=== PATIENT | male | born 1955 | race Caucasian/White ===

== ENCOUNTER → 2017-11-23 15:39 | Outpatient (CLI) | payer BC, SELFPAY ==
[2017-11-23 16:18] LABS: Add Manual Diff / Slide Review NO; Basophils Percent Auto 0.7 % (0-2); Hematocrit 42.1 % (41-53); Hemoglobin 14.7 g/dL (13.5-17.5); Lymphocytes Percent Auto 24.9 % (25-40); Mean Corpuscular Hemoglobin 31.7 PG (26-34); Mean Corpuscular Volume 90.5 fL (80-100); Monocytes Percent Auto 8.6 % (3-14); Neutrophils Absolute Auto 4700 /uL (3000-5900); Neutrophils Percent Auto 64.8 % (50-75); Platelet Count 173 X10^3/uL (150-400); Red Blood Cell Count 4.65 X10^6/uL (4.5-5.9); Red Cell Distribution Width 13.3 % (11.6-14.8); White Blood Cell Count 7.3 X10^3/uL (4.5-11.0)
[2017-11-23 16:24] LABS: Hemoglobin A1C% w Est Avg Glu 5.1 % (4.0-6.0)
[2017-11-23 16:45] LABS: Cholesterol 228 mg/dL (140-199); HDL Cholesterol 87 mg/dL (40-60); LDL Cholesterol Calculated 128 mg/dL (<100); Triglycerides 64 mg/dL (35-150)
[2017-11-23 17:14] LABS: Thyroid Stimulating Hormone 3.38 uIU/mL (0.47-4.68)
[2017-11-23 18:19] LABS: Alanine Aminotransferase 33 IU/L (21-72); Albumin 4.8 g/dL (3.5-5.0); Albumin Globulin Ratio 1.5 (1.0-2.8); Alkaline Phosphatase 43 U/L (38-126); Aspartate Aminotransferase 44 IU/L (17-59); BUN Creatinine Ratio 18.8 (6-22); Bilirubin Total 1.3 mg/dL (0.2-1.3); Blood Urea Nitrogen 15 mg/dL (9-20); Calcium 9.5 mg/dL (8.4-10.2); Carbon Dioxide 26 mmol/L (22-32); Chloride 100 mmol/L (98-107); Estimated Glomerular Filt Rate > 60.0 mL/min (>60); Globulin 3.1 g/dL (1.7-4.1); Glucose 89 mg/dL (80-110); HEMOLYSIS < 15 (0-50); Potassium 4.2 mmol/L (3.4-5.1); Sodium 139 mmol/L (137-145); Total Protein 7.9 g/dL (6.3-8.2)
== END ==
PROVIDERS: Family Provider Family Medicine; PCP Family Medicine; Visit Provider Family Medicine
DX: I10 Essential (primary) hypertension (principal); Z13.0 Encounter for screening for diseases of the blood and blood-forming organs and certain disorders involving the immune mechanism; R73.9 Hyperglycemia, unspecified; R78.5 Finding of other psychotropic drug in blood; Z13.29 Encounter for screening for other suspected endocrine disorder; Z12.5 Encounter for screening for malignant neoplasm of prostate
CPT/HCPCS: 36415; 80053; 80061; 83036; 84153; 84443; 85025

== ENCOUNTER → 2019-12-14 11:24 | Outpatient (CLI) | payer BC, MEDICARE, SELFPAY ==
[2019-12-14 12:15] LABS: Add Manual Diff / Slide Review NO; Basophils Absolute Auto 100 /uL (0-100); Basophils Percent Auto 0.9 % (0-2); Eosinophils Absolute Auto 100 /uL (0-450); Eosinophils Percent Auto 1.5 % (2-4); Hematocrit 41.7 % (41-53); Hemoglobin 14.2 g/dL (13.5-17.5); Lymphocytes Absolute Auto 1500 /uL (1100-4500); Lymphocytes Percent Auto 23.5 % (25-40); Mean Corpuscular HGB Conc 34.1 % (30-36); Mean Corpuscular Hemoglobin 30.7 PG (26-34); Mean Corpuscular Volume 89.9 fL (80-100); Monocytes Absolute Auto 600 /uL (0-900); Monocytes Percent Auto 9.5 % (3-14); Neutrophils Absolute Auto 4000 /uL (1500-7000); Neutrophils Percent Auto 64.6 % (50-75); Platelet Count 162 X10^3/uL (150-400); Red Blood Cell Count 4.64 X10^6/uL (4.5-5.9); Red Cell Distribution Width 13.1 % (11.6-14.8); White Blood Cell Count 6.3 X10^3/uL (4.5-11.0)
[2019-12-14 13:03] LABS: Alanine Aminotransferase 25 IU/L (<50); Albumin 4.4 g/dL (3.5-5.0); Albumin Globulin Ratio 1.7 (1.0-2.8); Alkaline Phosphatase 46 U/L (38-126); Aspartate Aminotransferase 27 IU/L (17-59); BUN Creatinine Ratio 14.5 (6-22); Bilirubin Total 0.8 mg/dL (0.2-1.3); Blood Urea Nitrogen 11 mg/dL (9-20); Calcium 9.6 mg/dL (8.4-10.2); Carbon Dioxide 26 mmol/L (22-32); Chloride 101 mmol/L (98-107); Cholesterol 170 mg/dL (140-199); Estimated Glomerular Filt Rate > 60.0 mL/min (>60); Globulin 2.6 g/dL (1.7-4.1); Glucose 102 mg/dL (80-110); HDL Cholesterol 45 mg/dL (40-60); HEMOLYSIS < 15 (0-50); LDL Cholesterol Calculated 104 mg/dL (<100); Potassium 4.6 mmol/L (3.4-5.1); Sodium 135 mmol/L (137-145); Triglycerides 107 mg/dL (35-150)
[2019-12-14 13:31] LABS: Prostate Specific Antigen Scrn 2.05 ng/mL (0.1-4.0); Thyroid Stimulating Hormone 3.97 uIU/mL (0.47-4.68)
== END ==
PROVIDERS: Family Provider Family Medicine; PCP Family Medicine; Referring Provider Family Medicine; Visit Provider Family Medicine
DX: E78.2 Mixed hyperlipidemia (principal); E03.9 Hypothyroidism, unspecified; Z12.5 Encounter for screening for malignant neoplasm of prostate
CPT/HCPCS: 36415; 80053; 80061; 84443; 85025; G0103

== ENCOUNTER → 2021-10-30 13:24 | Outpatient (CLI) | payer BC, SELFPAY ==
[2021-10-30 13:54] LABS: Alanine Aminotransferase 39 IU/L (<50); Albumin 4.6 g/dL (3.5-5.0); Albumin Globulin Ratio 1.6 (1.0-2.8); Alkaline Phosphatase 43 U/L (38-126); Aspartate Aminotransferase 32 IU/L (17-59); BUN Creatinine Ratio 14.3 (6-22); Bilirubin Total 0.8 mg/dL (0.2-1.3); Blood Urea Nitrogen 11 mg/dL (9-20); Carbon Dioxide 29 mmol/L (22-32); Chloride 100 mmol/L (98-107); Cholesterol 212 mg/dL (140-199); Estimated Glomerular Filt Rate > 60 mL/min (>60); Globulin 2.9 g/dL (1.7-4.1); Glucose 92 mg/dL (80-110); HDL Cholesterol 56 mg/dL (40-60); HEMOLYSIS < 15 (0-50); LDL Cholesterol Calculated 138 mg/dL (<100); Potassium 4.3 mmol/L (3.4-5.1); Sodium 139 mmol/L (137-145); Total Protein 7.5 g/dL (6.3-8.2); Triglycerides 90 mg/dL (35-150)
[2021-10-30 14:24] LABS: Prostate Specific Antigen Scrn 2.81 ng/mL (0.1-4.0)
[2021-10-30 16:19] LABS: TSH w/ Reflex to FT4 2.83 uIU/mL (0.47-4.68)
== END ==
PROVIDERS: Family Provider Family Medicine; PCP Internal Medicine; Referring Provider Internal Medicine; Visit Provider Internal Medicine
DX: E03.9 Hypothyroidism, unspecified (principal); E78.2 Mixed hyperlipidemia; Z12.5 Encounter for screening for malignant neoplasm of prostate
CPT/HCPCS: 36415; 80053; 80061; 84443; G0103

== ENCOUNTER → 2022-09-27 07:00 | Outpatient (CLI) | payer BC, SELFPAY ==
[2022-09-27 08:33] LABS: Alanine Aminotransferase 60 IU/L (<50); Albumin 4.4 g/dL (3.5-5.0); Albumin Globulin Ratio 1.3 (1.0-2.8); Alkaline Phosphatase 42 U/L (38-126); Aspartate Aminotransferase 62 IU/L (17-59); BUN Creatinine Ratio 12.7 (6-22); Bilirubin Total 0.8 mg/dL (0.2-1.3); Blood Urea Nitrogen 9 mg/dL (9-20); Calcium 9.4 mg/dL (8.4-10.2); Carbon Dioxide 31 mmol/L (22-32); Chloride 100 mmol/L (98-107); Cholesterol 227 mg/dL (140-199); Estimated Glomerular Filt Rate > 60 mL/min (>60); Globulin 3.3 g/dL (1.7-4.1); Glucose 104 mg/dL (80-110); HDL Cholesterol 77 mg/dL (40-60); HEMOLYSIS 32 (0-50); LDL Cholesterol Calculated 134 mg/dL (<100); Potassium 4.6 mmol/L (3.4-5.1); Sodium 136 mmol/L (137-145); Total Protein 7.7 g/dL (6.3-8.2); Triglycerides 81 mg/dL (35-150)
[2022-09-27 08:50] LABS: Free T4, Direct Thyroxine 0.96 ng/dL (0.78-2.19)
[2022-09-27 09:04] LABS: Prostate Specific Antigen Scrn 2.89 ng/mL (0.1-4.0); Thyroid Stimulating Hormone 5.37 uIU/mL (0.47-4.68)
== END ==
PROVIDERS: Family Provider Family Medicine; PCP Internal Medicine; Referring Provider Internal Medicine; Visit Provider Internal Medicine
DX: E03.9 Hypothyroidism, unspecified (principal); Z13.1 Encounter for screening for diabetes mellitus; Z13.220 Encounter for screening for lipoid disorders; Z12.5 Encounter for screening for malignant neoplasm of prostate; Z13.6 Encounter for screening for cardiovascular disorders
CPT/HCPCS: 36415; 80053; 80061; 84439; 84443; G0103

== ENCOUNTER → 2022-09-28 14:36 | Outpatient (CLI) | payer BC, SELFPAY ==
[2022-09-28 16:19] LABS: Creatine Kinase 51 U/L (55-170); HEMOLYSIS < 15 (0-50); Iron 154 ug/dL (49-181)
[2022-09-28 16:29] LABS: Percent Iron Saturation 54 % (20-50); Total Iron Binding Capacity 286 ug/dL (261-462); Transferrin 242 mg/dL (206-381)
[2022-09-29 03:51] LABS: Ceruloplasmin 21.7 mg/dL (16.0-31.0)
[2022-09-29 17:54] LABS: Hep C Virus Ab w/Reflex Quant NEGATIVE s/c (NEGATIVE); Hepatitis B Surface Antigen NEGATIVE s/c (NEGATIVE)
[2022-09-30 04:09] LABS: Hepatitis B Surf Ab Qualitativ Non Reactive (.)
[2022-09-30 12:42] LABS: Smooth Muscle Antibody 5 Units (0-19)
[2022-10-01 19:34] LABS: ANA Screen, IFA Negative (.)
[2022-10-05 23:24] LABS: Deamidated Gliadin IgA 4 units (0-19); Deamidated Gliadin IgG 2 units (0-19); IGA 282 mg/dL (61-437); t-Transglutaminase IgA <2 U/mL (0-3)
== END ==
PROVIDERS: Family Provider Family Medicine; PCP Internal Medicine; Referring Provider Internal Medicine; Visit Provider Internal Medicine
DX: R74.01 Elevation of levels of liver transaminase levels (principal)
CPT/HCPCS: 36415; 82390; 82550; 82784; 83516; 83540; 83550; 86038; 86255; 86706; 86803; 87340

== ENCOUNTER 2022-12-24 08:42 | Day surgery (SDC) | payer BC, SELFPAY ==
--- NOTE | 2022-12-24 | PATH_ITS ---
[facility] Accession Number: [id number] . 01 Material submitted: . rectum - RECTAL POLYP . 01 Diagnosis: COLON, RECTUM, POLYP BIOPSY: - HYPERPLASTIC POLYP WITH FOCAL EROSION. - NEGATIVE FOR DYSPLASIA OR MALIGNANCY. TXN 12/30/2022 1106 Local . 01 Electronically signed: . Alondra Ruvalcaba MD, Pathologist NPI- [id number] . 01 Gross description: . RECTAL POLYP: Received in formalin are 4 fragment(s) of [place], soft tissue measuring 0.2 x 0.2 x 0.2 cm to 0.9 x 0.8 x 0.7 cm submitted entirely in 1 cassette(s) /MARCELLUS 12/28/2022 1944 Local . 01 Pathologist provided ICD-10: Z12.11 . 01 CPT . 147072 Performed at: 01 [facility] [address] [place] [address] [id number] MD Elliott Rizzo MD Phone: [phone]
[2022-12-24 08:58] VITALS: BP 139/72; PULSE 58; RESP 16; TEMP 36.3; O2SAT 98; BMI 23.6
[2022-12-24] MEDS: LACTATED RINGERS 1,000 ML 42 ML IV (09:12)
--- NOTE | 2022-12-24 10:20 | PM.HP.1 ---
History of Present Illness History of Present Illness Date Patient Seen: 12/24/22 Time Patient Seen: 10:20 Chief complaint: Colonoscopy Narrative: 67-year-old male presents today for a screening colonoscopy. His last colonoscopy was in 2008 at [facility] he had no polyps or other issues as far as he knows. No family history of colon cancer and no symptoms that are concerning to him. He otherwise has no questions or concerns and wishes to proceed [facility] Medical History (Updated 12/24/22 @ 10:21 by Gaby Bradley MD) Chickenpox (~1958) Hypothyroidism Mixed hyperlipidemia Sleep apnea, unspecified (01/05/12) Subarachnoid hemorrhage (07/17/14) Family History (Updated 02/26/14 @ 00:00 by Conversion Provider) Sister Age: 70 Lupus Social History (Updated 07/29/17 @ 18:57 by Elena Baker) household members: spouse pets and animals: Yes education level: high school leisure activities: music seatbelt use: always water heater temp set < 120 deg: Yes working smoke detector in home: Yes fire extinguisher in home: Yes carbon monox detector in home: Yes firearms in home: No Smoking Status: Never smoker alcohol intake: current substance use type: does not use during the past year weight has: remained stable well-balanced diet: daily or most days daily servings fruits/ve-4 caffeine: Yes eating out: 1-3 times/week Type(s) of exercise: other Meds Home Medications and Allergies Home Medications Medication Instructions Recorded Confirmed Type sodium,potassium,mag sulfates 17.5 See Rx Instructions PO .COMPLEX 11/04/22 Rx gram-3.13 gram-1.6 gram oral soln #354 mL (Suprep Bowel Prep Kit) Allergies Allergy/AdvReac Type Severity Reaction Status Date / Time No Known Drug Allergies Allergy Verified 12/24/22 08:53 Exam Vital Signs (past 8 hours): - 12/24/22 08:58 Temperature 97.3 F L Pulse Rate 58 L Respiratory Rate 16 Blood Pressure 139/72 Pulse Oximetry 98 Oxygen Delivery Method Room Air Oxygen Delivery Method Room Air Const General: cooperative, healthy appearing and comfortable Nutritional Appearance: average body habitus and well nourished HENMT Head: normal to inspection Eyes General: appearance normal, both eyes and all related structures Resp Effort & Inspection: normal respiratory effort and able to speak in complete sentences GI Palpation: soft and No tender Assessment & Plan Assessment and plan (1) Screening for colon cancer: Status: Acute Plan Presents today for screening colonoscopy I discussed the risks benefits and alternatives including but not limited to perforation of the colon and an incomplete exam he fully understands these risks and would like to proceed.
[2022-12-24 11:09] VITALS: BP 105/58; PULSE 59; RESP 14; TEMP 36.2; O2SAT 98
--- NOTE | 2022-12-24 11:12 | PM.OP.COLON ---
Operative Date/Time/Diagnoses Date of procedure: 12/24/22 Time of procedure: 11:12 Pre-op diagnosis: Screening for colon cancer. no family history Post-op diagnosis: same Procedure & Clinicians Study performed: Colonoscopy and biopsy Same procedure as scheduled: Yes Indications: Screening for colon cancer. Surgeon: Gaby Bradley Procedure Notes Procedure in detail: Patient was taken to the endoscopy suite and placed in a left lateral decubitus position. A time-out was performed. With the help of anesthesiologist conscious sedation was induced and monitored throughout the case. A digital rectal exam was performed and there were no masses or strictures. The colonoscope was introduced into the anal canal and advanced through to the cecum. A pedunculated red colored polyp was seen in the rectum on the way in, the scope was advanced with some abdominal pressure to the cecum. A photograph of the appendiceal orifice was obtained. The bowel prep was good [place] bowel prep score of 2. The scope was then withdrawn for a total of 15 minutes including biopsy. There were scattered diverticula throughout the sigmoid colon. There were no other polyps identified or seen and the pedunculated 9 mm approximately reddish colored polyp was removed with a snare and further pieces of the stalk were taken with the biopsy forceps and the entire polyp was sent in 1 specimen jar for pathology. The scope was then retroflexed and a photograph of the internal hemorrhoidal piles was obtained. Findings: diverticulitis and polyp(s) Specimen(s): other (Rectal polyp, pedunculated, approximately 9 mm size) Complications: none Post-procedure Plan for aftercare: Depending on the pathology of the polyp your follow-up recommendation will be between 5-10 years. I do recommend a fiber supplementation both because of diverticula and polyps.
[2022-12-24 11:13] VITALS: BP 112/60; PULSE 59; RESP 15; O2SAT 98
[2022-12-24 11:18] VITALS: BP 108/51; PULSE 65; RESP 18; TEMP 35.9; O2SAT 98
[2022-12-24 11:20] VITALS: BP 118/64; PULSE 56; RESP 19; O2SAT 99
== END 2022-12-24 11:33 | disposition home or self-care (01) ==
PROVIDERS: Family Provider Family Medicine; PCP Internal Medicine; Referring Provider Surgery; Visit Provider Surgery
PROC: 0DJD8ZZ Inspection of Lower Intestinal Tract, Via Natural or Artificial Opening Endoscopic (ICD-10-PCS; CPT 45378; principal; 2022-12-24 09:30)
DX: Z12.11 Encounter for screening for malignant neoplasm of colon (principal); K57.30 Diverticulosis of large intestine without perforation or abscess without bleeding; K62.1 Rectal polyp
CPT/HCPCS: 45385; 45380; J2704

== ENCOUNTER → 2023-05-12 10:25 | Outpatient (CLI) | payer BC, SELFPAY ==
--- NOTE | 2023-05-12 10:26 | DI.RAD.S_ITS ---
PROCEDURE: XR HIP W PEL IF DONE LT 2V INDICATIONS: pain x 4 weeks TECHNIQUE: AP pelvis with lateral view(s) of the left hip(s). COMPARISON: None. FINDINGS: Bones: No fractures or dislocations. Pelvic ring appears intact. No suspicious bony lesions. Moderate symmetric hip and sacroiliac joint joint degeneration. Soft tissues: The visualized bowel gas pattern is normal. No suspicious soft tissue calcifications. IMPRESSION: Moderate degenerative joint disease. Dictated by: Savannah Alfonso M.D. on 05/13/2023 at 15:55 Approved by: Savannah Alfonso M.D. on 05/13/2023 at 15:57
--- NOTE | 2023-05-12 10:26 | DI.RAD.S_ITS ---
PROCEDURE: XR LUMBAR SPINE MIN 4V INDICATIONS: pain x 4 weeks TECHNIQUE: 5 views of the lumbar spine were acquired, including bilateral oblique views. COMPARISON: [facility], , L-SPINE 2-3 VIEWS, 09/11/2015, 14:50. FINDINGS: Bones: 5 [id number] vertebrae are present. There is moderate levoscoliosis. There is otherwise normal bony alignment. No vertebral body compression fractures. No suspicious bony lesions. Multilevel degenerative disc disease, moderate at L1-L2, mild at other levels. Moderate facet arthropathy at L4-L5 and L5-S1. Soft tissues: Overlying bowel gas pattern is normal. No suspicious soft tissue calcifications. Oblique images: No pars defects. IMPRESSION: 1. No acute bony abnormality. If clinical symptoms persist or there is clinical suspicion for nerve root impingement, consider MRI. 2. Moderate degenerative disc and facet disease in lumbar spine. 3. Moderate levoscoliosis. Dictated by: Savannah Alfonso M.D. on 05/12/2023 at 13:21 Approved by: Savannah Alfonso M.D. on 05/12/2023 at 13:24
[2023-05-12 11:30] LABS: Alanine Aminotransferase 36 IU/L (<50); Albumin 4.7 g/dL (3.5-5.0); Albumin Globulin Ratio 1.4 (1.0-2.8); Alkaline Phosphatase 51 U/L (38-126); Aspartate Aminotransferase 42 IU/L (17-59); Bilirubin Total 1.1 mg/dL (0.2-1.3); Blood Urea Nitrogen 9 mg/dL (9-20); Carbon Dioxide 28 mmol/L (22-32); Chloride 100 mmol/L (98-107); Estimated Glomerular Filt Rate > 60 mL/min (>60); Globulin 3.4 g/dL (1.7-4.1); Glucose 108 mg/dL (80-110); HEMOLYSIS < 15 (0-50); Sodium 135 mmol/L (137-145); Total Protein 8.1 g/dL (6.3-8.2)
[2023-05-12 12:16] LABS: Vitamin B12 307 pg/mL (239-931)
== END ==
PROVIDERS: Family Provider Family Medicine; PCP Internal Medicine; Referring Provider Physician Assistant; Visit Provider Physician Assistant
DX: M25.552 Pain in left hip (principal); M54.50 Low back pain, unspecified; R74.8 Abnormal levels of other serum enzymes; G62.9 Polyneuropathy, unspecified
CPT/HCPCS: 36415; 72110; 73502; 80053; 82607

== ENCOUNTER 2023-10-11 08:45 | Emergency (ER) | payer BC, SELFPAY ==
[2023-10-11] VITALS (154 sets, daily range): BP systolic 90–159; BP diastolic 54–101; PULSE 53–100; RESP 8–35; O2SAT 92–98; BMI 24.3
--- NOTE | 2023-10-11 08:48 | DI.RAD.S_ITS ---
PROCEDURE: XR CHEST 1V INDICATIONS: chest pain TECHNIQUE: One view of the chest was acquired. COMPARISON: [facility], , CHEST 1 VIEW, 06/25/2014, 11:23. FINDINGS: Surgical changes and devices: None. Lungs and pleura: Lungs are clear. No pleural effusions or pneumothorax. Mediastinum: Mediastinal contours appear normal. Heart size is normal. Bones and chest wall: No suspicious bony lesions. Overlying soft tissues appear unremarkable. IMPRESSION: No acute cardiopulmonary abnormality is seen. Dictated by: Jim Worley M.D. on 10/11/2023 at 9:17 Approved by: Jim Worley M.D. on 10/11/2023 at 9:17
--- NOTE | 2023-10-11 08:52 | EKG_ITS ---
[facility] [address] [place] [address] Test Date: 2023-10-11 Pat Name: Nic Workman Department: Room: Gender: Male [employer]: CORDELIA : 1955 Requested By: Order Number: [id number] Reading MD: Alex Cole Measurements Intervals [place] Rate: 91 P: UT: QRS: -24 QRSD: 90 T: -48 QT: 356 QTc: 437 Interpretive Statements Atrial fibrillation Nonspecific ST and T wave abnormality Electronically Signed On 10-11-2023 18:26:24 PDT by Alex Cole
[2023-10-11 09:11] LABS: Add Manual Diff / Slide Review NO; Basophils Absolute Auto 100 /uL (0-100); Basophils Percent Auto 0.7 % (0-2); Eosinophils Absolute Auto 100 /uL (0-450); Hematocrit 46.3 % (41-53); Hemoglobin 16.1 g/dL (13.5-17.5); Lymphocytes Absolute Auto 1500 /uL (1100-4500); Mean Corpuscular HGB Conc 34.8 % (30-36); Mean Corpuscular Hemoglobin 32.1 PG (26-34); Mean Corpuscular Volume 92.2 fL (80-100); Monocytes Absolute Auto 800 /uL (0-900); Monocytes Percent Auto 10.9 % (3-14); Neutrophils Absolute Auto 5200 /uL (1500-7000); Neutrophils Percent Auto 67.4 % (50-75); Platelet Count 165 X10^3/uL (150-400); Red Blood Cell Count 5.02 X10^6/uL (4.5-5.9); Red Cell Distribution Width 14.1 % (11.6-14.8); White Blood Cell Count 7.7 X10^3/uL (4.5-11.0)
[2023-10-11 09:18] LABS: INR 0.9 (0.9-1.3); Prothrombin Time 10.1 SECONDS (9.4-12.5)
[2023-10-11 09:21] LABS: PTT Partial Thromboplastin Tim 31 SECONDS (25.1-36.5)
[2023-10-11 09:24] LABS: Alanine Aminotransferase 47 IU/L (<50); Albumin 4.7 g/dL (3.5-5.0); Albumin Globulin Ratio 1.5 (1.0-2.8); Alkaline Phosphatase 50 U/L (38-126); Aspartate Aminotransferase 44 IU/L (17-59); BUN Creatinine Ratio 15.3 (6-22); Bilirubin Total 0.8 mg/dL (0.2-1.3); Blood Urea Nitrogen 13 mg/dL (9-20); Calcium 9.2 mg/dL (8.4-10.2); Carbon Dioxide 32 mmol/L (22-32); Chloride 101 mmol/L (98-107); Creatine Kinase 97 U/L (55-170); Estimated Glomerular Filt Rate > 60 mL/min (>60); Globulin 3.2 g/dL (1.7-4.1); Glucose 125 mg/dL (80-110); HEMOLYSIS < 15 (0-50); Lipase 87 U/L (23-300); Magnesium 2.1 mg/dL (1.6-2.3); Potassium 4.1 mmol/L (3.4-5.1); Sodium 138 mmol/L (137-145); Total Protein 7.9 g/dL (6.3-8.2)
[2023-10-11 09:35] LABS: NT-proBNP (BNP-Adult 18+) 762 pg/mL (<125)
[2023-10-11 10:06] LABS: Troponin I 0.202 ng/mL (0.01-0.034)
--- NOTE | 2023-10-11 10:06 | ED.CHESTPAIN ---
HPI - Chest Pain <Radha Guadarrama MD - Last Filed: 10/24/23 21:35> General Chief Complaint: Chest Pain Stated Complaint: chest pain/pressure Time Seen by Provider: 10/11/23 10:06 Source: patient Mode of arrival: Ambulatory History of Present Illness HPI narrative: 68-year-old gentleman with no chronic medical issues he does have a history of a subarachnoid hemorrhage approximately 10 years ago who presents with chest pain that is started last night. He was getting ready for bed and noticed some tightness perhaps indigestion he tried some baking soda with water which did not resolve his symptoms. He had a restless night and as he was driving to work this morning noticed that he was still having discomfort and tightness through his central chest. He states ever since it started it has been at around 2-3 on a pain scale without increasing. He is not short of breath, no orthopnea, no abdominal pain no headaches he is not complaining of any palpitations. He has no personal history of atrial fibrillation as far as he is aware. He has not currently anticoagulated. He does not have a family history for significant cardiac disease Related Data Home Medications Medication Instructions Recorded Confirmed ibuprofen 200 mg tablet 600 mg PO Q6H PRN 05/12/23 05/12/23 Previous Rx's Medication Instructions Recorded cyclobenzaprine 10 mg tablet 5 - 10 mg (0.5 - 1 x 10 mg) PO TID 05/12/23 PRN muscle spasm #20 tabs naproxen 500 mg tablet 500 mg PO BID PRN pain #40 tabs 05/12/23 Allergies Allergy/AdvReac Type Severity Reaction Status Date / Time No Known Drug Allergies Allergy Verified 05/12/23 09:50 Review of Systems <Radha Guadarrama MD - Last Filed: 10/24/23 21:35> Review of Systems Narrative: Pertinent positive and negative findings as per HPI Patient History <Radha Guadarrama MD - Last Filed: 10/24/23 21:35> Medical History Mixed hyperlipidemia Sleep apnea, unspecified (01/05/12) Hypothyroidism Chickenpox (~1958) Subarachnoid hemorrhage (07/17/14) Family History Sister Age: 71 Lupus Social History household members: spouse pets and animals: Yes education level: high school leisure activities: music seatbelt use: always water heater temp set < 120 deg: Yes working smoke detector in home: Yes fire extinguisher in home: Yes carbon monox detector in home: Yes firearms in home: No Smoking Status: Never smoker alcohol intake: current substance use type: does not use during the past year weight has: remained stable well-balanced diet: daily or most days daily servings fruits/ve-4 caffeine: Yes eating out: 1-3 times/week Type(s) of exercise: other Smoking Status: Never smoker alcohol intake frequency: 0-2 drinks per day Alcohol type: hard liquor Substance Use Type: marijuana Exam <Radha Guadarrama MD - Last Filed: 10/24/23 21:35> Initial Vital Signs Initial Vital Signs: Vital Signs Pulse Rate 100 H 10/11/23 08:49 Respiratory Rate 18 10/11/23 08:49 Blood Pressure 158/101 H 10/11/23 08:49 Pulse Oximetry 96 10/11/23 08:49 Oxygen Delivery Method Room Air 10/11/23 08:49 General: Healthy appearing, in no acute distress. Able to give a complete and coherent history. Well-nourished well-developed HEENT: Moist mucous membranes, normal sclera with reactive pupils, Neck: No JVD, supple Respiratory: Lungs are clear to auscultation, no wheezing no rales no rhonchi. Full and symmetrical air movement Cardiac: Irregular but rate controlled, no murmurs Abdomen: Soft, nontender, good bowel tones, no flank pain Skin: Warm and dry, no rashes Neurologic: Grossly neurologically intact with no obvious asymmetries or abnormalities Extremities: No trauma, well perfused Psych: Cooperative, appropriate insight and affect <Monica Adams DO - Last Filed: 10/12/23 02:57> Initial Vital Signs Initial Vital Signs: Vital Signs Pulse Rate 100 H 10/11/23 08:49 Respiratory Rate 18 10/11/23 08:49 Blood Pressure 158/101 H 10/11/23 08:49 Pulse Oximetry 96 10/11/23 08:49 Oxygen Delivery Method Room Air 10/11/23 08:49 Course <Radha Guadarrama MD - Last Filed: 10/24/23 21:35> Orders Ordered: Discontinued Medications Aspirin (Aspirin 81 Mg Chew Tab) 324 mg PO NOW ONE Stop: 10/11/23 10:19 Last Admin: 10/11/23 10:27 Dose: 324 mg Documented By: DARINEL Heparin Sodium (Porcine) (Heparin 5,000 Unit/Ml Vial) 4,500 unit 60 unit/kg (4500 unit) IV NOW ONE Stop: 10/11/23 10:19 Last Admin: 10/11/23 10:29 Dose: 4,500 unit Documented By: DARINEL Heparin Sodium/Dextrose (Heparin Drip) 25,000 unit in 500 mls @ 18.507 mls/hr IV CONT KAPIL; Protocol Last Admin: 10/11/23 10:36 Dose: 12 units/kg/hr, 18.507 mls/hr Documented By: DARINEL Co-signed By: Sodium Chloride (Normal Saline 0.9%) 1,000 mls @ 1,000 mls/hr IV BOLUS ONE Stop: 10/11/23 11:39 Last Infusion: 10/11/23 13:31 Dose: Infused Documented By: Admin: 10/11/23 10:43 Dose: 1,000 mls/hr Documented By: DARINEL Nitroglycerin (Nitroglycerin 0.4 Mg Sl Tab) 0.4 mg SL [id number] PRN PRN Reason: Chest Pain Last Admin: 10/11/23 10:28 Dose: 0.4 mg Documented By: DARINEL Nitroglycerin (Nitroglycerin Oint 1 Inch/Gm Oint...G.) 0.5 inch TOP NOW ONE Stop: 10/11/23 10:41 Last Admin: 10/11/23 10:55 Dose: 0.5 inch Documented By: DARINEL Vital Signs Vital signs: Vital Signs - 8 hr 10/11/23 19:00 10/11/23 19:00 10/11/23 19:05 Pulse Rate 62 62 Respiratory Rate 18 22 Blood Pressure 119/67 Pulse Oximetry 95 95 Oxygen Delivery Method Room Air 10/11/23 19:10 10/11/23 19:15 10/11/23 19:15 Pulse Rate 61 62 Respiratory Rate 23 22 Blood Pressure 111/71 Pulse Oximetry 95 96 Oxygen Delivery Method 10/11/23 19:20 10/11/23 19:25 10/11/23 19:30 Pulse Rate 53 L 84 Respiratory Rate 16 29 H Blood Pressure 136/90 Pulse Oximetry 96 96 Oxygen Delivery Method 10/11/23 19:30 10/11/23 19:35 10/11/23 19:40 Pulse Rate 72 78 89 Respiratory Rate 18 25 H 34 H Blood Pressure Pulse Oximetry 96 96 96 Oxygen Delivery Method 10/11/23 19:45 10/11/23 19:45 10/11/23 19:50 Pulse Rate 72 75 Respiratory Rate 17 20 Blood Pressure 126/75 Pulse Oximetry 93 94 Oxygen Delivery Method 10/11/23 19:55 10/11/23 20:00 10/11/23 20:00 Pulse Rate 77 78 Respiratory Rate 20 22 Blood Pressure 107/59 L Pulse Oximetry 94 92 Oxygen Delivery Method 10/11/23 23:05 10/11/23 23:10 10/11/23 23:15 Pulse Rate 69 71 Respiratory Rate 17 13 Blood Pressure 113/63 Pulse Oximetry 94 95 Oxygen Delivery Method 10/11/23 23:15 10/11/23 23:20 10/11/23 23:25 Pulse Rate 73 64 63 Respiratory Rate 19 14 15 Blood Pressure Pulse Oximetry 95 94 94 Oxygen Delivery Method 10/11/23 23:30 10/11/23 23:30 10/11/23 23:35 Pulse Rate 64 59 L Respiratory Rate 12 16 Blood Pressure 121/63 Pulse Oximetry 95 94 Oxygen Delivery Method 10/11/23 23:40 10/11/23 23:45 10/11/23 23:45 Pulse Rate 64 63 Respiratory Rate 16 16 Blood Pressure 118/67 Pulse Oximetry 96 94 Oxygen Delivery Method 10/11/23 23:50 10/11/23 23:55 10/12/23 00:00 Pulse Rate 68 66 Respiratory Rate 27 H 15 Blood Pressure 102/59 L Pulse Oximetry 93 94 Oxygen Delivery Method 10/12/23 00:00 10/12/23 00:05 10/12/23 00:10 Pulse Rate 66 61 57 L Respiratory Rate 20 17 16 Blood Pressure Pulse Oximetry 95 95 96 Oxygen Delivery Method 10/12/23 00:15 10/12/23 00:17 10/12/23 00:17 Pulse Rate 64 64 Respiratory Rate 15 21 Blood Pressure 110/64 Pulse Oximetry 95 95 Oxygen Delivery Method 10/12/23 00:20 10/12/23 00:25 10/12/23 00:30 Pulse Rate 65 68 Respiratory Rate 19 18 Blood Pressure 110/66 Pulse Oximetry 95 96 Oxygen Delivery Method 10/12/23 00:30 10/12/23 00:35 10/12/23 00:40 Pulse Rate 67 65 64 Respiratory Rate 18 17 17 Blood Pressure Pulse Oximetry 94 93 94 Oxygen Delivery Method 10/12/23 00:45 10/12/23 00:50 10/12/23 00:55 Pulse Rate 65 65 65 Respiratory Rate 20 16 16 Blood Pressure Pulse Oximetry 95 94 93 Oxygen Delivery Method 10/12/23 01:00 10/12/23 01:00 10/12/23 01:05 Pulse Rate 62 70 Respiratory Rate 21 13 Blood Pressure 115/71 Pulse Oximetry 95 96 Oxygen Delivery Method 10/12/23 01:10 10/12/23 01:15 10/12/23 01:20 Pulse Rate 66 65 64 Respiratory Rate 20 15 12 Blood Pressure Pulse Oximetry 95 95 95 Oxygen Delivery Method 10/12/23 01:25 10/12/23 01:30 10/12/23 01:30 Pulse Rate 65 64 Respiratory Rate 13 16 Blood Pressure 108/63 Pulse Oximetry 95 95 Oxygen Delivery Method 10/12/23 01:35 10/12/23 01:40 10/12/23 01:45 Pulse Rate 63 77 67 Respiratory Rate 15 20 20 Blood Pressure Pulse Oximetry 94 96 95 Oxygen Delivery Method 10/12/23 01:50 10/12/23 01:55 10/12/23 02:00 Pulse Rate 73 62 Respiratory Rate 26 H 19 Blood Pressure 115/71 Pulse Oximetry 95 95 Oxygen Delivery Method 10/12/23 02:00 10/12/23 02:05 10/12/23 02:10 Pulse Rate 64 64 64 Respiratory Rate 15 17 17 Blood Pressure Pulse Oximetry 96 96 96 Oxygen Delivery Method 10/12/23 02:15 10/12/23 02:20 Pulse Rate 62 63 Respiratory Rate 16 13 Blood Pressure Pulse Oximetry 95 96 Oxygen Delivery Method <Monica Adams DO - Last Filed: 10/12/23 02:57> Orders Ordered: Discontinued Medications Aspirin (Aspirin 81 Mg Chew Tab) 324 mg PO NOW ONE Stop: 10/11/23 10:19 Last Admin: 10/11/23 10:27 Dose: 324 mg Documented By: DARINEL Heparin Sodium (Porcine) (Heparin 5,000 Unit/Ml Vial) 4,500 unit 60 unit/kg (4500 unit) IV NOW ONE Stop: 10/11/23 10:19 Last Admin: 10/11/23 10:29 Dose: 4,500 unit Documented By: DARINEL Heparin Sodium/Dextrose (Heparin Drip) 25,000 unit in 500 mls @ 18.507 mls/hr IV CONT KAPIL; Protocol Last Admin: 10/11/23 10:36 Dose: 12 units/kg/hr, 18.507 mls/hr Documented By: DARINEL Co-signed By: Sodium Chloride (Normal Saline 0.9%) 1,000 mls @ 1,000 mls/hr IV BOLUS ONE Stop: 10/11/23 11:39 Last Infusion: 10/11/23 13:31 Dose: Infused Documented By: Admin: 10/11/23 10:43 Dose: 1,000 mls/hr Documented By: DARINEL Nitroglycerin (Nitroglycerin 0.4 Mg Sl Tab) 0.4 mg SL [id number] PRN PRN Reason: Chest Pain Last Admin: 10/11/23 10:28 Dose: 0.4 mg Documented By: DARINEL Nitroglycerin (Nitroglycerin Oint 1 Inch/Gm Oint...G.) 0.5 inch TOP NOW ONE Stop: 10/11/23 10:41 Last Admin: 10/11/23 10:55 Dose: 0.5 inch Documented By: DARINEL Vital Signs Vital signs: Vital Signs - 8 hr 10/11/23 19:00 10/11/23 19:00 10/11/23 19:05 Pulse Rate 62 62 Respiratory Rate 18 22 Blood Pressure 119/67 Pulse Oximetry 95 95 Oxygen Delivery Method Room Air 10/11/23 19:10 10/11/23 19:15 10/11/23 19:15 Pulse Rate 61 62 Respiratory Rate 23 22 Blood Pressure 111/71 Pulse Oximetry 95 96 Oxygen Delivery Method 10/11/23 19:20 10/11/23 19:25 10/11/23 19:30 Pulse Rate 53 L 84 Respiratory Rate 16 29 H Blood Pressure 136/90 Pulse Oximetry 96 96 Oxygen Delivery Method 10/11/23 19:30 10/11/23 19:35 10/11/23 19:40 Pulse Rate 72 78 89 Respiratory Rate 18 25 H 34 H Blood Pressure Pulse Oximetry 96 96 96 Oxygen Delivery Method 10/11/23 19:45 10/11/23 19:45 10/11/23 19:50 Pulse Rate 72 75 Respiratory Rate 17 20 Blood Pressure 126/75 Pulse Oximetry 93 94 Oxygen Delivery Method 10/11/23 19:55 10/11/23 20:00 10/11/23 20:00 Pulse Rate 77 78 Respiratory Rate 20 22 Blood Pressure 107/59 L Pulse Oximetry 94 92 Oxygen Delivery Method 10/11/23 23:05 10/11/23 23:10 10/11/23 23:15 Pulse Rate 69 71 Respiratory Rate 17 13 Blood Pressure 113/63 Pulse Oximetry 94 95 Oxygen Delivery Method 10/11/23 23:15 10/11/23 23:20 10/11/23 23:25 Pulse Rate 73 64 63 Respiratory Rate 19 14 15 Blood Pressure Pulse Oximetry 95 94 94 Oxygen Delivery Method 10/11/23 23:30 10/11/23 23:30 10/11/23 23:35 Pulse Rate 64 59 L Respiratory Rate 12 16 Blood Pressure 121/63 Pulse Oximetry 95 94 Oxygen Delivery Method 10/11/23 23:40 10/11/23 23:45 10/11/23 23:45 Pulse Rate 64 63 Respiratory Rate 16 16 Blood Pressure 118/67 Pulse Oximetry 96 94 Oxygen Delivery Method 10/11/23 23:50 10/11/23 23:55 10/12/23 00:00 Pulse Rate 68 66 Respiratory Rate 27 H 15 Blood Pressure 102/59 L Pulse Oximetry 93 94 Oxygen Delivery Method 10/12/23 00:00 10/12/23 00:05 10/12/23 00:10 Pulse Rate 66 61 57 L Respiratory Rate 20 17 16 Blood Pressure Pulse Oximetry 95 95 96 Oxygen Delivery Method 10/12/23 00:15 10/12/23 00:17 10/12/23 00:17 Pulse Rate 64 64 Respiratory Rate 15 21 Blood Pressure 110/64 Pulse Oximetry 95 95 Oxygen Delivery Method 10/12/23 00:20 10/12/23 00:25 10/12/23 00:30 Pulse Rate 65 68 Respiratory Rate 19 18 Blood Pressure 110/66 Pulse Oximetry 95 96 Oxygen Delivery Method 10/12/23 00:30 10/12/23 00:35 10/12/23 00:40 Pulse Rate 67 65 64 Respiratory Rate 18 17 17 Blood Pressure Pulse Oximetry 94 93 94 Oxygen Delivery Method 10/12/23 00:45 10/12/23 00:50 10/12/23 00:55 Pulse Rate 65 65 65 Respiratory Rate 20 16 16 Blood Pressure Pulse Oximetry 95 94 93 Oxygen Delivery Method 10/12/23 01:00 10/12/23 01:00 10/12/23 01:05 Pulse Rate 62 70 Respiratory Rate 21 13 Blood Pressure 115/71 Pulse Oximetry 95 96 Oxygen Delivery Method 10/12/23 01:10 10/12/23 01:15 10/12/23 01:20 Pulse Rate 66 65 64 Respiratory Rate 20 15 12 Blood Pressure Pulse Oximetry 95 95 95 Oxygen Delivery Method 10/12/23 01:25 10/12/23 01:30 10/12/23 01:30 Pulse Rate 65 64 Respiratory Rate 13 16 Blood Pressure 108/63 Pulse Oximetry 95 95 Oxygen Delivery Method 10/12/23 01:35 10/12/23 01:40 10/12/23 01:45 Pulse Rate 63 77 67 Respiratory Rate 15 20 20 Blood Pressure Pulse Oximetry 94 96 95 Oxygen Delivery Method 10/12/23 01:50 10/12/23 01:55 10/12/23 02:00 Pulse Rate 73 62 Respiratory Rate 26 H 19 Blood Pressure 115/71 Pulse Oximetry 95 95 Oxygen Delivery Method 10/12/23 02:00 10/12/23 02:05 10/12/23 02:10 Pulse Rate 64 64 64 Respiratory Rate 15 17 17 Blood Pressure Pulse Oximetry 96 96 96 Oxygen Delivery Method 10/12/23 02:15 10/12/23 02:20 Pulse Rate 62 63 Respiratory Rate 16 13 Blood Pressure Pulse Oximetry 95 96 Oxygen Delivery Method MDM - Chest Pain <Radha Guadarrama MD - Last Filed: 10/24/23 21:35> Lab Data 10/11/23 08:55 10/11/23 08:55 Labs: Lab Results 10/11/23 10/11/23 10/11/23 Range/Units 08:55 10:54 16:36 WBC 7.7 (4.5-11.0) X10^3/uL RBC 5.02 (4.5-5.9) X10^6/uL Hgb 16.1 (13.5-17.5) g/dL Hct 46.3 (41-53) % MCV 92.2 (80-100) fL MCH 32.1 (26-34) PG MCHC 34.8 (30-36) % RDW 14.1 (11.6-14.8) % Plt Count 165 (150-400) X10^3/uL Neut % (Auto) 67.4 (50-75) % Lymph % (Auto) 20.0 L (25-40) % [place] % (Auto) 10.9 (3-14) % Eos % (Auto) 1.0 L (2-4) % Baso % (Auto) 0.7 (0-2) % Neut # (Auto) 5200 (4336-1985) /uL Lymph # (Auto) 1500 (9464-0945) /uL [place] # (Auto) 800 (0-900) /uL Eos # (Auto) 100 (0-450) /uL Baso # (Auto) 100 (0-100) /uL PT 10.1 (9.4-12.5) SECONDS INR 0.9 (0.9-1.3) APTT 31 62 H D (25.1-36.5) SECONDS Sodium 138 (137-145) mmol/L Potassium 4.1 (3.4-5.1) mmol/L Chloride 101 (98-107) mmol/L Carbon Dioxide 32 (22-32) mmol/L BUN 13 (9-20) mg/dL Creatinine 0.85 (0.66-1.25) mg/dL Estimated GFR > 60 (>60) mL/min BUN/Creatinine Ratio 15.3 (6-22) Glucose 125 H (80-110) mg/dL Calcium 9.2 (8.4-10.2) mg/dL Magnesium 2.1 (1.6-2.3) mg/dL Total Bilirubin 0.8 (0.2-1.3) mg/dL AST 44 (17-59) IU/L ALT 47 (<50) IU/L Alkaline Phosphatase 50 (38-126) U/L Total Creatine Kinase 97 (55-170) U/L Troponin I 0.202 H* 0.704 H* (0.01-0.034) ng/mL NT-Pro-B Natriuret Pep 762 H (<125) pg/mL Total Protein 7.9 (6.3-8.2) g/dL Albumin 4.7 (3.5-5.0) g/dL Globulin 3.2 (1.7-4.1) g/dL Albumin/Globulin Ratio 1.5 (1.0-2.8) Lipase 87 (23-300) U/L 10/11/23 10/11/23 Range/Units 20:30 22:29 WBC (4.5-11.0) X10^3/uL RBC (4.5-5.9) X10^6/uL Hgb (13.5-17.5) g/dL Hct (41-53) % MCV (80-100) fL MCH (26-34) PG MCHC (30-36) % RDW (11.6-14.8) % Plt Count (150-400) X10^3/uL Neut % (Auto) (50-75) % Lymph % (Auto) (25-40) % [place] % (Auto) (3-14) % Eos % (Auto) (2-4) % Baso % (Auto) (0-2) % Neut # (Auto) (6550-0029) /uL Lymph # (Auto) (2235-4334) /uL [place] # (Auto) (0-900) /uL Eos # (Auto) (0-450) /uL Baso # (Auto) (0-100) /uL PT (9.4-12.5) SECONDS INR (0.9-1.3) APTT 54 H (25.1-36.5) SECONDS Sodium (137-145) mmol/L Potassium (3.4-5.1) mmol/L Chloride (98-107) mmol/L Carbon Dioxide (22-32) mmol/L BUN (9-20) mg/dL Creatinine (0.66-1.25) mg/dL Estimated GFR (>60) mL/min BUN/Creatinine Ratio (6-22) Glucose (80-110) mg/dL Calcium (8.4-10.2) mg/dL Magnesium (1.6-2.3) mg/dL Total Bilirubin (0.2-1.3) mg/dL AST (17-59) IU/L ALT (<50) IU/L Alkaline Phosphatase (38-126) U/L Total Creatine Kinase 642 H D (55-170) U/L Troponin I 9.820 H* (0.01-0.034) ng/mL NT-Pro-B Natriuret Pep (<125) pg/mL Total Protein (6.3-8.2) g/dL Albumin (3.5-5.0) g/dL Globulin (1.7-4.1) g/dL Albumin/Globulin Ratio (1.0-2.8) Lipase (23-300) U/L MDM Narrative Medical decision making narrative: CC: Chest pain ongoing for approximately 12 hours Complicating co-morbidities: No current medications, history of subarachnoid hemorrhage approximately 10 years ago Data collected from: patient, Medical records reviewed: Last primary care visit was September of 2022 Differential considered: STEMI, acute coronary syndrome, pericarditis, pleurisy Exam documented above, pertinent findings include: An irregular rhythm otherwise exam is entirely benign, patient is quite comfortable with good perfusion Lab Test results independently reviewed as above. Pertinent findings: CBC is unremarkable Chemistries are reassuring Initial troponin is positive at 0.202 ProBNP is minimally elevated at 762 1125 repeat trop .704 Independently reviewed EKG: EKG shows atrial fibrillation at a rate of 91 with nonspecific STT wave changes 1128 repeat EKG continues to show rate controlled atrial fibrillation nonspecific STT wave abnormalities not significantly changed from presenting EKG Imaging studies independently reviewed: Chest x-ray is completely unremarkable Consultations: [address], Cardiology [facility], [place]. accepts patient and recommends hospitalist admit 125[address] Dr Rock, hospitalist will accept. Wait for call with bed availability to arrange transport 100 patient and updated Treatments: Aspirin, sublingual nitroglycerin, heparin Re-evaluations: Patient is informed of the positive troponin and anticipated transfer when available bed is located. Reviewed with him need to start heparin and request to make sure that he lets me know if his chest pain worsens 1040 with initial sublingual nitroglycerin, his pain decreased from 3-1 however his blood pressure also decreased from a systolic of 130 to 90. He will be given a fluid bolus we will hold additional sublingual nitro. Assuming pressure returns to normal, we will add nitro paste and see if he tolerates this. [address]130 with nitroglycerin paste in place patient states that his pain is essentially resolved to a minor sensation only. Updated on increasing troponin and attempts for bed placement and transfer [address] Jordan, cardiology. Agrees with continued aggressive medical management and continued active search for bed availability but not yet meeting criteria for emergent transfer to [facility] for catheterization. At this point we have contacted [facility], [facility], [facility], [facility] none of whom have beds available nor expect any in the immediate future. We will continue to expand search. Given the fact that he is likely going to continue to have an extended emergency room stay will order an echocardiogram Discussion: 68-year-old gentleman with no significant prior cardiac history presents with new atrial fibrillation and elevated troponins consistent with NSTEMI. Pain is essentially controlled on nitro paste, he continues on a heparin drip. Needs transfer to hospital with heart catheterization capacity and cardiology consultation. No beds available in the [facility] [place]. We will be transferred to [facility] for further care and treatment. He remains stable at time of transfer <Monica Adams DO - Last Filed: 10/12/23 02:57> Lab Data Labs: Lab Results 10/11/23 10/11/23 10/11/23 Range/Units 08:55 10:54 16:36 WBC 7.7 (4.5-11.0) X10^3/uL RBC 5.02 (4.5-5.9) X10^6/uL Hgb 16.1 (13.5-17.5) g/dL Hct 46.3 (41-53) % MCV 92.2 (80-100) fL MCH 32.1 (26-34) PG MCHC 34.8 (30-36) % RDW 14.1 (11.6-14.8) % Plt Count 165 (150-400) X10^3/uL Neut % (Auto) 67.4 (50-75) % Lymph % (Auto) 20.0 L (25-40) % [place] % (Auto) 10.9 (3-14) % Eos % (Auto) 1.0 L (2-4) % Baso % (Auto) 0.7 (0-2) % Neut # (Auto) 5200 (1049-9642) /uL Lymph # (Auto) 1500 (6142-3791) /uL [place] # (Auto) 800 (0-900) /uL Eos # (Auto) 100 (0-450) /uL Baso # (Auto) 100 (0-100) /uL PT 10.1 (9.4-12.5) SECONDS INR 0.9 (0.9-1.3) APTT 31 62 H D (25.1-36.5) SECONDS Sodium 138 (137-145) mmol/L Potassium 4.1 (3.4-5.1) mmol/L Chloride 101 (98-107) mmol/L Carbon Dioxide 32 (22-32) mmol/L BUN 13 (9-20) mg/dL Creatinine 0.85 (0.66-1.25) mg/dL Estimated GFR > 60 (>60) mL/min BUN/Creatinine Ratio 15.3 (6-22) Glucose 125 H (80-110) mg/dL Calcium 9.2 (8.4-10.2) mg/dL Magnesium 2.1 (1.6-2.3) mg/dL Total Bilirubin 0.8 (0.2-1.3) mg/dL AST 44 (17-59) IU/L ALT 47 (<50) IU/L Alkaline Phosphatase 50 (38-126) U/L Total Creatine Kinase 97 (55-170) U/L Troponin I 0.202 H* 0.704 H* (0.01-0.034) ng/mL NT-Pro-B Natriuret Pep 762 H (<125) pg/mL Total Protein 7.9 (6.3-8.2) g/dL Albumin 4.7 (3.5-5.0) g/dL Globulin 3.2 (1.7-4.1) g/dL Albumin/Globulin Ratio 1.5 (1.0-2.8) Lipase 87 (23-300) U/L 10/11/23 10/11/23 Range/Units 20:30 22:29 WBC (4.5-11.0) X10^3/uL RBC (4.5-5.9) X10^6/uL Hgb (13.5-17.5) g/dL Hct (41-53) % MCV (80-100) fL MCH (26-34) PG MCHC (30-36) % RDW (11.6-14.8) % Plt Count (150-400) X10^3/uL Neut % (Auto) (50-75) % Lymph % (Auto) (25-40) % [place] % (Auto) (3-14) % Eos % (Auto) (2-4) % Baso % (Auto) (0-2) % Neut # (Auto) (2783-5088) /uL Lymph # (Auto) (8065-4921) /uL [place] # (Auto) (0-900) /uL Eos # (Auto) (0-450) /uL Baso # (Auto) (0-100) /uL PT (9.4-12.5) SECONDS INR (0.9-1.3) APTT 54 H (25.1-36.5) SECONDS Sodium (137-145) mmol/L Potassium (3.4-5.1) mmol/L Chloride (98-107) mmol/L Carbon Dioxide (22-32) mmol/L BUN (9-20) mg/dL Creatinine (0.66-1.25) mg/dL Estimated GFR (>60) mL/min BUN/Creatinine Ratio (6-22) Glucose (80-110) mg/dL Calcium (8.4-10.2) mg/dL Magnesium (1.6-2.3) mg/dL Total Bilirubin (0.2-1.3) mg/dL AST (17-59) IU/L ALT (<50) IU/L Alkaline Phosphatase (38-126) U/L Total Creatine Kinase 642 H D (55-170) U/L Troponin I 9.820 H* (0.01-0.034) ng/mL NT-Pro-B Natriuret Pep (<125) pg/mL Total Protein (6.3-8.2) g/dL Albumin (3.5-5.0) g/dL Globulin (1.7-4.1) g/dL Albumin/Globulin Ratio (1.0-2.8) Lipase (23-300) U/L MDM Narrative Medical decision making narrative: CC: Chest pain ongoing for approximately 12 hours Complicating co-morbidities: No current medications, history of subarachnoid hemorrhage approximately 10 years ago Data collected from: patient, Medical records reviewed: Last primary care visit was September of 2022 Differential considered: STEMI, acute coronary syndrome, pericarditis, pleurisy Exam documented above, pertinent findings include: An irregular rhythm otherwise exam is entirely benign, patient is quite comfortable with good perfusion Lab Test results independently reviewed as above. Pertinent findings: CBC is unremarkable Chemistries are reassuring Initial troponin is positive at 0.202 ProBNP is minimally elevated at 762 1125 repeat trop .704 Independently reviewed EKG: EKG shows atrial fibrillation at a rate of 91 with nonspecific STT wave changes 1128 repeat EKG continues to show rate controlled atrial fibrillation nonspecific STT wave abnormalities not significantly changed from presenting EKG Imaging studies independently reviewed: Chest x-ray is completely unremarkable Consultations: [address], Cardiology [place]. accepts patient and recommends hospitalist admit 125[address] Dr Rock, hospitalist will accept. Wait for call with bed availability to arrange transport 100 patient and updated Treatments: Aspirin, sublingual nitroglycerin, heparin Re-evaluations: Patient is informed of the positive troponin and anticipated transfer when available bed is located. Reviewed with him need to start heparin and request to make sure that he lets me know if his chest pain worsens 1040 with initial sublingual nitroglycerin, his pain decreased from 3-1 however his blood pressure also decreased from a systolic of 130 to 90. He will be given a fluid bolus we will hold additional sublingual nitro. Assuming pressure returns to normal, we will add nitro paste and see if he tolerates this. [address] paste in place patient states that his pain is essentially resolved to a minor sensation only. Updated on increasing troponin and attempts for bed placement and transfer [address] Jordan, cardiology. Agrees with continued aggressive medical management and continued active search for bed availability but not yet meeting criteria for emergent transfer to [facility] for catheterization. At this point we have contacted [facility], [facility] none of whom have beds available nor expect any in the immediate future. We will continue to expand search. Given the fact that he is likely going to continue to have an extended emergency room stay will order an echocardiogram Discussion: 68-year-old gentleman with no significant prior cardiac history presents with new atrial fibrillation and elevated troponins consistent with NSTEMI. Pain is essentially controlled on nitro paste, he continues on a heparin drip. Needs transfer to hospital with heart catheterization capacity and cardiology consultation. No beds available in the [facility] [place]. We will be transferred to [facility] for further care and treatment. He remains stable at time of transfer Dr. Adams-patient signed out to me by Dr. Quiroz I have seen evaluated patient myself currently sleeping but does wake easily. He has very mild chest discomfort he currently has nitro paste on. Repeat troponin 9.8. It does look like he had an echocardiogram today but result is not in yet. Awaiting for placement at [facility] there is hope for later this evening. EKG 2. Sinus rhythm rate 66 DC interval 162 QRS [address] depression in inferior leads to AVF with T-wave inversions in lead [address] depression in V4 and V5 as well no elevation, similar to prior but a little more pronounced. 00:30 Ling Huffman updated on patient's symptoms test results accepts patient for transfer Critical Care Time <Monica Adams, - Last Filed: 10/12/23 02:57> Critical Care Time Critical Care Time: Yes Total Critical Care Time: 55 Attestation: The high probability of a clinically significant, sudden or life threatening deterioration of the [cardiovascular] system(s) required my full and direct attention, intervention and personal management. The aggregate critical care time was 55 minutes. This time is in addition to time spent performing reported procedures but includes the following: [x] Data Review and interpretation [x] Patient assessment and monitoring of vital signs [x] Documentation [x] Medication orders and management Discharge Plan Departure Patient Disposition: [facility] Clinical Impression: Acute non-ST elevation myocardial infarction (NSTEMI), New onset a-fib Prescriptions: No Action ibuprofen 200 mg tablet 600 mg PO Q6H PRN naproxen 500 mg tablet 500 mg PO BID PRN (Reason: pain) Qty: 40 0RF cyclobenzaprine 10 mg tablet 5 - 10 mg PO TID PRN (Reason: muscle spasm) Qty: 20 0RF Referrals: Phu Newell MD [Primary Care Provider] -
[2023-10-11] MEDS: ASPIRIN 81 MG CHEW TAB 324 MG PO (10:27)
[2023-10-11] MEDS: NITROGLYCERIN 0.4 MG SL TAB SL (10:28)
[2023-10-11] MEDS: HEPARIN 5,000 UNIT/ML VIAL 4500 UNIT IV (10:29)
[2023-10-11] MEDS: HEPARIN DRIP 25,000 UNIT/500 ML IV.SOLN 18.507 UNIT IV (10:36)
--- NOTE | 2023-10-11 10:37 | PC.NURSE ---
spoke to Janet at [facility] who said they will possibly have beds available to fax all the stuff spoke to sofya at [facility] and they don't have beds at the moment they are trying to accommodate their ER spoke to Renata at [facility] [place] who said they might have beds probably later davon spoke to Peace at who said to call back after [phone]
[2023-10-11] MEDS: SODIUM CHLORIDE 0.9% 1,000 ML 1000 ML IV (10:43)
[2023-10-11] MEDS: NITROGLYCERIN OINT 1 INCH/GM OINT...G. 0.5 INCH TOP (10:55)
--- NOTE | 2023-10-11 10:58 | PC.NURSE ---
after patient's first dose of Nitro. bp drop 90's. pt was clammy and nausea. holding the rest of the SL nitro. Dr. platt aware. bp 134/80. ntg paste on patient. reports he is now feeling better. sscp 04/20
[2023-10-11 11:25] LABS: Troponin I 0.704 ng/mL (0.01-0.034)
--- NOTE | 2023-10-11 11:25 | EKG_ITS ---
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
--- NOTE | 2023-10-11 11:28 | EKG_ITS ---
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
--- NOTE | 2023-10-11 11:33 | PC.NURSE ---
held asa earlier since history of subarchnoid hemorrhage. reviewed with Dr. Guadarrama. Ok to give the ASA. and heparin since it was almost 10 years ago,.
--- NOTE | 2023-10-11 12:13 | DI.ECHO.S_ITS ---
[facility]---------+ [facility] : : [address] : : [place] : : [id number] : : Phone: [phone] Echocardiogram Report + + :Name: PIOTR MORENO Study Date: 10/11/2023 Height: 70 in : :Hospital ReadingLocation: Weight: 170 lb : : Gender: Male BSA: 1.9 m2 : :: 1955 Age: 68 yrs BP: 144/74 mmHg: :Reason For Study: ONGOING CHEST PAIN : :Ordering Physician: MUNIRA, : :ELIER Damico Performed By: Payal Sanz : :Referring: ELIER LOMBARDO : + + Interpretation Summary The patient was in atrial fibrillation with heart rates between 71-85 bpm during the exam. The ejection fraction is estimated to be 55-60%. Diastolic function could not be accurately assessed due to atrial fibrillation. The right ventricle is borderline dilated. The right ventricular systolic function is normal. There is mild mitral regurgitation. There is mild tricuspid regurgitation. The right ventricular systolic pressure is estimated to be at least 27 mmHg based on an estimated right atrial pressure of 3 mm Hg. Procedure: A two-dimensional transthoracic echocardiogram with color flow and Doppler was performed. The study quality was technically adequate. There is no prior echocardiogram noted for this patient. The patient was in atrial fibrillation with heart rates between 71-85 bpm during the exam. Left Ventricle: The left ventricle is normal in size and wall thickness. The ejection fraction is estimated to be 55-60%. Diastolic function could not be accurately assessed due to atrial fibrillation. Right Ventricle: The right ventricle is borderline dilated. The right ventricular systolic function is normal. Atria: The left atrial size is normal. Right atrial size is normal. There is no Doppler evidence for an interatrial shunt. Mitral Valve: There is a flat closure plane of the the mitral valve leaflets. There is mild mitral regurgitation. Aortic Valve: The aortic valve is trileaflet. The aortic valve opens well. There is no aortic valve stenosis. No aortic regurgitation is present. Tricuspid Valve: The tricuspid valve is normal. There is mild tricuspid regurgitation. The right ventricular systolic pressure is estimated to be at least 27 mmHg based on an estimated right atrial pressure of 3 mm Hg. Pulmonic Valve: The pulmonic valve is not well seen, but is grossly normal. There is mild pulmonic regurgitation. Great Vessels: The aortic root is normal size. The dimensions of the ascending aorta are normal. The IVC is of normal diameter and collapses greater than 50% with a sniff. This suggests a low right atrial pressure of 3 mm Hg. Pericardium/ Pleura There is no pericardial effusion. There is no pleural effusion. MMode/2D Measurements & Calculations LVIDd: 4.7 cm LVOT diam: 2.0 cm LVIDs: 3.4 cm Ao root diam: 3.3 cm FS: 27.6 % asc Aorta Diam: 3.3 cm IVSd: 0.92 cm Ao Arch Diam (Prox Trans): 2.7 cm LVPWd: 1.1 cm LV pham. diameter/BSA (cm/m^2): 2.4 LV sys. diameter/BSA (cm/m^2): 1.8 LA A2 area: 21.4 cm2 RA long axis: 4.7 cm LA A4 area: 18.4 cm2 RA area: 17.3 cm2 LA length (vol): 5.7 cm RA vol: 54.5 ml LA vol: 58.7 ml RA : 28.0 ml/m2 LA vol index: 30.1 ml/m2 IVC diam: 1.8 cm RVD1 (basal): 4.2 cm TAPSE: 1.8 cm Doppler Measurements & Calculations Ao V2 max: 120.0 cm/sec LVOT Max Fred: 76.3 cm/sec Ao V2 mean: 86.8 cm/sec LV V1 max P.3 mmHg Ao max P.8 mmHg LV V1 VTI: 14.0 cm Ao mean P.3 mmHg STACIE(I,D): 1.9 cm2 Ao V2 VTI: 22.2 cm STACIE(V,D): 1.9 cm2 sev ratio: 0.63 STACIE indexed to BSA (cm^2/m^2): 0.97 MV E max fred: 71.5 cm/sec TR max fred: 246.0 cm/sec MV A max fred: 1.5 cm/sec TR max P.2 mmHg MV E/A: 47.9 PA V2 max: 79.1 cm/sec Med Peak E' Fred: 14.2 cm/sec PA V2 mean: 53.6 cm/sec E/E' med: 5.0 PA mean P.3 mmHg Lat Peak E' Fred: 14.4 cm/sec PA pr(Accel): 31.0 mmHg E/E' lat: 5.0 E/e' average: 5.0 MV dec time: 0.21 sec [facility]): 41.7 ml Reading Physician:01:50 PM
[2023-10-11 16:59] LABS: PTT Partial Thromboplastin Tim 62 SECONDS (25.1-36.5)
--- NOTE | 2023-10-11 20:08 | PC.NURSE ---
Follwed up with [facility] transfer [facility] about bed placement. Transfer center indicated to call back around mid-night after they know staffing levels. This tech informed provider and RN and Pt
[2023-10-11 20:46] LABS: Creatine Kinase 642 U/L (55-170)
--- NOTE | 2023-10-11 22:32 | EKG_ITS ---
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 Electronically Signed On 10-12-2023 15:04:06 PDT by Shayne Olson
[2023-10-11 22:54] LABS: PTT Partial Thromboplastin Tim 54 SECONDS (25.1-36.5)
--- NOTE | 2023-10-11 23:59 | PC.NURSE ---
Followed up with [facility] transfer about bed status. They are short staff at this time with no bed availability until sometime in the am Transfer center informed this tech to follow up at 0800 10/12/23 about bed placement
[2023-10-12] VITALS (30 sets, daily range): BP systolic 102–115; BP diastolic 59–71; PULSE 57–77; RESP 12–26; O2SAT 93–96
--- NOTE | 2023-10-12 02:37 | PC.NURSE ---
Heparin rate of 18.5 mL/hr verified w [facility] superintendent transportation.
== END 2023-10-12 02:42 | disposition short-term general hospital (02) ==
PROVIDERS: Emergency Medicine; Emergency Provider Emergency Medicine; Family Provider Family Medicine; PCP Internal Medicine
DX: I21.4 Non-ST elevation (NSTEMI) myocardial infarction (principal); I48.91 Unspecified atrial fibrillation
CPT/HCPCS: 36415; 71045; 80053; 82550; 83690; 83735; 83880; 84484; 85025; 85610; 85730; 93005; 93306; 96365; 96366; 99285; 99291; J1644

== ENCOUNTER → 2024-08-03 14:05 | Outpatient (CLI) | payer MEDICARE, SELFPAY ==
[2024-08-03 15:05] LABS: Alanine Aminotransferase 54 IU/L (<50); Albumin 4.6 g/dL (3.5-5.0); Albumin Globulin Ratio 2.1 (1.0-2.8); Alkaline Phosphatase 46 U/L (38-126); Aspartate Aminotransferase 47 IU/L (17-59); BUN Creatinine Ratio 12.8 (6-22); Blood Urea Nitrogen 10 mg/dL (9-20); Calcium 9.5 mg/dL (8.4-10.2); Carbon Dioxide 26 mmol/L (22-32); Chloride 101 mmol/L (98-107); Cholesterol 134 mg/dL (140-199); Estimated Glomerular Filt Rate > 60 mL/min (>60); Globulin 2.2 g/dL (1.7-4.1); Glucose 97 mg/dL (70-99); HDL Cholesterol 65 mg/dL (40-60); HEMOLYSIS < 15 (0-50); LDL Cholesterol Calculated 56 mg/dL (<100); Potassium 4.2 mmol/L (3.4-5.1); Sodium 136 mmol/L (137-145); Total Protein 6.8 g/dL (6.3-8.2); Triglycerides 67 mg/dL (35-150)
[2024-08-03 15:21] LABS: Free T4, Direct Thyroxine 1.03 ng/dL (0.78-2.19)
[2024-08-03 15:35] LABS: Thyroid Stimulating Hormone 3.98 uIU/mL (0.47-4.68)
[2024-08-03 15:36] LABS: Prostate Specific Antigen Scrn 3.04 ng/mL (0.1-4.0)
== END ==
LOC: LAB 14:06
PROVIDERS: Family Provider Family Medicine; PCP Internal Medicine; Referring Provider Internal Medicine; Visit Provider Internal Medicine
DX: E78.2 Mixed hyperlipidemia (principal); Z12.5 Encounter for screening for malignant neoplasm of prostate; E03.9 Hypothyroidism, unspecified; I25.10 Atherosclerotic heart disease of native coronary artery without angina pectoris; R74.8 Abnormal levels of other serum enzymes
CPT/HCPCS: 36415; 80053; 80061; 84439; 84443; G0103